=== PATIENT | female | born 1995 | race Caucasian/White ===

== ENCOUNTER 2021-05-24 16:52 | Emergency (ER) | payer SELFPAY ==
[2021-05-24 16:58] VITALS: BP 122/77; PULSE 81; RESP 20; TEMP 37.1; O2SAT 100
--- NOTE | 2021-05-24 17:32 | ED.URI ---
HPI - URI/Sore Throat <CONNIE Gottlieb - Last Filed: 05/24/21 19:16> General Chief Complaint: Upper Respiratory Symptoms Stated Complaint: Throat Pain Time Seen by Provider: 05/24/21 17:05 Source: patient Mode of arrival: Ambulatory History of Present Illness HPI Narrative: This is a 25-year-old transgender male who goes by [place] who presents to the emergency department for sore throat which started this morning, low-grade temperature of 99? F last night, and pain with swallowing. He states that he had strep throat as a child, and maybe as an adult but has history of this in the past. He denies any shortness of breath, wheezing, sensation of closing throat. Denies any new medications recently, denies any rash or other symptom, denies any nausea vomiting or diarrhea. He denies any stridor, difficulty breathing, malodorous breath or abdominal pain. Related Data Previous Rx's Medication Instructions Recorded benzocaine 15 mg-menthol 2.3 mg 1 franny PO PRN PRN #16 ea 05/24/21 lozenges (Cepacol Sore Throat (benzocaine-menthol)) fluticasone propionate 50 1 spray INTRANASAL DAILY PRN #16 g 05/24/21 mcg/actuation nasal spray,suspension (Flonase Allergy Relief) Allergies Allergy/AdvReac Type Severity Reaction Status Date / Time No Known Drug Allergies Allergy Verified 05/24/21 17:01 Review of Systems <CONNIE Gottlieb - Last Filed: 05/24/21 19:16> Review of Systems Narrative: General: denies fever, chills, malaise, sweats, fatigue Head/Neck: denies headache, neck pain, dizziness HENT: Sore throat, tonsillar adenopathy, denies any anterior cervical lymphadenopathy Eyes: denies visual changes, eye pain Cardio: denies chest pain, palpitations, edema Respiratory: denies dyspnea, cough, orthopnea GI: denies abdominal pain, nausea, vomiting, or diarrhea : denies dysuria, hematuria, urinary retention, frequency or incontinence MSK: denies joint pain, muscle weakness Skin: denies rash, itching, skin lesions or other Neuro: denies numbness, tingling Patient History <CONNIE Gottlieb - Last Filed: 05/24/21 19:16> Social History Smoking Status: Former smoker Smoking Status: Former smoker Exam <CONNIE Gottlieb - Last Filed: 05/24/21 19:16> Narrative Exam Narrative: Independently reviewed vitals signs and nursing notes. General: cooperative, comfortable, in no acute distress, well developed and well groomed Head: atraumatic, symmetrical facial expressions Neck: supple, atraumatic, without lymphadenopathy. Eyes: pupils equal round and reactive, EOMI, conjunctiva normal Nose: nares patent, no rhinorrhea Mouth/Throat: uvula midline, moist mucus membranes, tonsillar adenopathy 1 to 2+, exudate present on right tonsil Cardiovascular: regular rate and rhythm, no peripheral edema, warm extremities Respiratory: normal effort, able to speak in complete sentences, no audible wheezing, stridor, or rales. No retractions or tachypnea. GI: abdomen soft, nontender to palpation, nondistended, no masses, no exquisite tenderness with exam, without guarding or rebound. MSK: moves all extremities, ambulatory w/steady gait, neurovascularly intact, no weakness Skin: brisk capillary refill, no rash, no erythema Neuro: normal speech and cognition, A&O x3, normal tone Psych: mental status is grossly normal, congruent mood, normal affect, pleasant and cooperative Initial Vital Signs Initial Vital Signs: Vital Signs Temperature 98.7 F 05/24/21 16:58 Pulse Rate 81 05/24/21 16:58 Respiratory Rate 20 05/24/21 16:58 Blood Pressure 122/77 05/24/21 16:58 Pulse Oximetry 100 05/24/21 16:58 <Missy Causey DO - Last Filed: 05/26/21 09:44> Initial Vital Signs Initial Vital Signs: Vital Signs Temperature 98.7 F 05/24/21 16:58 Pulse Rate 81 05/24/21 16:58 Respiratory Rate 20 05/24/21 16:58 Blood Pressure 122/77 05/24/21 16:58 Pulse Oximetry 100 05/24/21 16:58 Course <CONNIE Gottlieb - Last Filed: 05/24/21 19:16> Orders Ordered: Discontinued Medications Dexamethasone (Dexamethasone 10 Mg/Ml Vial) 10 mg PO NOW ONE Stop: 05/24/21 17:39 Last Admin: 05/24/21 17:52 Dose: 10 mg Documented by: RIYA Ketorolac Tromethamine (Ketorolac 30 Mg/Ml Vial) 15 mg IM NOW ONE Stop: 05/24/21 17:39 Last Admin: 05/24/21 17:51 Dose: 15 mg Documented by: RIYA Vital Signs Vital signs: Vital Signs - 8 hr 05/24/21 16:58 05/24/21 17:45 05/24/21 18:03 Temperature 98.7 F Pulse Rate 81 75 60 Respiratory Rate 20 18 18 Blood Pressure 122/77 124/70 105/67 Pulse Oximetry 100 99 100 <Missy Causey DO - Last Filed: 05/26/21 09:44> Orders Ordered: Discontinued Medications Dexamethasone (Dexamethasone 10 Mg/Ml Vial) 10 mg PO NOW ONE Stop: 05/24/21 17:39 Last Admin: 05/24/21 17:52 Dose: 10 mg Documented by: RIYA Ketorolac Tromethamine (Ketorolac 30 Mg/Ml Vial) 15 mg IM NOW ONE Stop: 05/24/21 17:39 Last Admin: 05/24/21 17:51 Dose: 15 mg Documented by: RIYA Vital Signs Vital signs: Vital Signs - 8 hr 05/24/21 16:58 05/24/21 17:45 05/24/21 18:03 Temperature 98.7 F Pulse Rate 81 75 60 Respiratory Rate 20 18 18 Blood Pressure 122/77 124/70 105/67 Pulse Oximetry 100 99 100 MDM - URI/Sore Throat <CONNIE Gottlieb - Last Filed: 05/24/21 19:16> Lab Data Labs: Lab Results 05/24/21 Range/Units 17:18 SARS-CoV-2 (PCR) Negative (Negative) Point of Care Testing Rapid Strep A Negative MDM Narrative Medical decision making narrative: This is a 25-year-old transgender male who goes by the name of Tee who presents to the emergency department complaining of sore throat which started this morning with a low-grade fever last. He denies any shortness of breath, difficulty swallowing, difficulty breathing, stridor, or other concerning symptom. He is afebrile, COVID test is negative, group a strep test was negative, throat culture obtained. Recommend supportive care measures at home. Presentation suggestive of viral syndrome/URI without evidence of hypoxia, respiratory distress, dehydration, or focal exam to suggest secondary bacterial infection. COVID negative. Discussed supportive treatments: Tylenol/Motrin as needed for pain/fever. OTC decongestant medications and/or antihistamines for symptomatic relief. Maintain adequate fluid intake. Follow-up with PCP as directed. Return to clinic/ER instructions discussed for new, not improving, or worsening symptoms. All questions answered. Patient given 10 mg of Decadron in the emergency department, will follow-up on throat culture. Recommend fluticasone nasal spray for congestion. Patient is appropriate and amenable to discharge home. Vital signs are stable on repeat examination is unremarkable. Patient has been informed of results. Patient has been given strict return to ER precautions for any new or worsening symptoms. Patient understands to follow up closely with outpatient providers as instructed. Patient understands plan and agrees to discharge home. All questions and concerns answered at this time. <Missy Causey, - Last Filed: 05/26/21 09:44> Lab Data Labs: Lab Results 05/24/21 Range/Units 17:18 SARS-CoV-2 (PCR) Negative (Negative) Point of Care Testing Rapid Strep A Negative Discharge Plan Departure Patient Disposition: Home Clinical Impression: Pharyngitis Qualifiers: Pharyngitis/tonsillitis etiology: unspecified etiology Qualified Code(s): J02.9 - Acute pharyngitis, unspecified Instructions: Sore Throat, Viral Pharyngitis Activity Restrictions/Additional Instructions: *You have been diagnosed with pharyngitis either a viral or bacterial etiology. Please do not take any more ibuprofen today, please start taking ibuprofen every 6 hours as needed tomorrow, using these throat lozenges, iced drinks or tea with honey to help your sore throat. You may try gargling with salt water as well. Tomorrow or the next day you may receive a phone call about the throat culture and at that time we will prescribe antibiotics if necessary. Please use Tylenol as needed for your pain in the meantime. I hope you start feeling better soon. Thank you for trusting us with your care. Your strep a test was negative, your COVID test was negative as well. Please use the Flonase to help decrease any postnasal drip or runny nose that is dripping down her throat causing her throat pain. *What to do: *Please continue to take your regular medications as directed. [ x] New medication prescriptions sent to your pharmacy: [ [facility]] [ ] New medication written as a paper prescription [ ] No new medications given *Please follow up with your primary care provider in 2-3 days, call for an appointment. Let them know you were seen in the Emergency Department and that we asked that you be seen for follow-up. We will electronically transmit a record of today's note if your PCP is in our system *If you do not have a primary care provider please contact [phone] to establish care with one of the [facility] primary care providers. *Return to Emergency Department if you should have any new, worsening or concerning symptoms, such as [fever greater than 101F, chills, worsening pain, persistent vomiting or other bothersome symptoms] Prescriptions: New fluticasone propionate [Flonase Allergy Relief] 50 mcg/actuation spray,suspension 1 spray intranasal DAILY PRN (Reason: nasal congestion) Qty: 16 0RF Rx Instructions: administer into each nostril Cepacol Sore Throat (yaya-men) 15-2.3 mg lozenge 1 franny PO PRN PRN (Reason: sore throat) Qty: 16 0RF <Missy Causey, DO - Last Filed: 05/26/21 09:44> Cosign ED Attending Elsaature Attestation: I was immediately available in the department for consultation. Documentation has been reviewed.
[2021-05-24 17:45] VITALS: BP 124/70; PULSE 75; RESP 18; O2SAT 99
[2021-05-24] MEDS: KETOROLAC 30 MG/ML VIAL 15 MG IM (17:51)
[2021-05-24] MEDS: DEXAMETHASONE 10 MG/ML VIAL PO (17:52)
[2021-05-24 17:54] LABS: COVID19 -Nasal RAPID Negative (Negative)
[2021-05-24 18:03] VITALS: BP 105/67; PULSE 60; RESP 18; O2SAT 100
== END 2021-05-24 18:03 | disposition home or self-care (01) ==
PROVIDERS: Emergency Provider Nurse Practitioner Critical Care Medicine
DX: J03.80 Acute tonsillitis due to other specified organisms (principal); B95.61 Methicillin susceptible Staphylococcus aureus infection as the cause of diseases classified elsewhere; Z20.822 Contact with and (suspected) exposure to COVID-19; Z87.891 Personal history of nicotine dependence
CPT/HCPCS: 87070; 87077; 87147; 87635; 87880; 96372; 99283; C9803; J1100; J1885